=== PATIENT | male | born 1955 | race Caucasian/White ===

== ENCOUNTER 2017-09-23 12:30 | Emergency (ER) | payer SELFPAY ==
[~2017-09-23] VITALS: Ht 177.8 cm; Wt 116.1 kg
[~2017-09-23 12:30] MED LIST: Z.0.NO CURRENT MEDS
[2017-09-23 12:44] VITALS: BP 150/69; PULSE 74; RESP 16; TEMP 98.3; O2SAT 98
[2017-09-23] MEDS ORDERED: TYLETAB34 PO (13:52)
[2017-09-23] MEDS ORDERED: AUGM875T3 PO (13:52)
--- NOTE | 2017-09-23 13:53 | PD ---
HPI Chief Complaint: Oral / Dental Pain or Problem Time Seen by Provider: 13:36 Travel History International Travel<30 days: No Contact w/Intl Traveler<30days: No Traveled to known affect area: No History of Present Illness HPI 62-year-old male here with left lower dental pain and jaw swelling 2 days. No fever chills. No difficulty swallowing. Symptom severity is moderate. No aggravating or alleviating factors. PFSH Past Medical History Arthritis: Yes Diminished Hearing: No Tetanus Vaccination: < 5 Years Influenza Vaccination: No Social History Alcohol Use: No (quit) Tobacco Use: No (quit) Substance Use: No Allergies-Medications (Allergen,Severity, Reaction): Coded Allergies: No Known Allergies (Verified Adverse Reaction, Unknown, 09/23/17) Reported Meds & Prescriptions Reported Meds & Active Scripts Active No Active Prescriptions or Reported Medications Review of Systems Except as stated in HPI: all other systems reviewed are Neg General / Constitutional: No: Fever Eyes: No: Visual changes HENT: Positive: Dental Difficulties, No: Headaches Cardiovascular: No: Chest Pain or Discomfort Respiratory: No: Shortness of Breath Gastrointestinal: No: Abdominal Pain Genitourinary: No: Dysuria Physical Exam Narrative GENERAL: Alert and well-appearing 62-year-old male SKIN: Warm and dry. HEAD: Normocephalic. Mild left lower jaw swelling EYES: No injection or drainage. MOUTH: Widespread dental decay. Notable gum erythema and mild swelling around tooth #19. No swelling to the floor the mouth. Uvula is midline. Airways patent. NECK: Supple, trachea midline. No lymphadenopathy. CARDIOVASCULAR: Regular rate and rhythm without murmurs, gallops, or rubs. RESPIRATORY: Breath sounds equal bilaterally. No accessory muscle use. Data Data Last Documented VS Vital Signs Date Time Temp Pulse Resp B/P (MAP) Pulse Ox O2 Delivery O2 Flow Rate FiO2 09/23/17 12:44 98.3 74 16 150/69 (96) 98 MDM Medical Decision Making Medical Screen Exam Complete: Yes Emergency Medical Condition: Yes Differential Diagnosis Dental abscess, dental caries, periodontal disease Narrative Course 62-year-old male here with left lower dental pain and swelling. He has a dental abscess. He will be treated with antibiotics. Diagnosis Primary Impression: Dental abscess Referrals: Dentist Additional Instructions: Antibiotics as directed. Pain medication as directed. Follow-up with her dentist Scripts Acetaminophen-Codeine (Tylenol-Codeine #3) 300-30 mg Tab 1 TAB PO Q6H Y for PAIN, #12 TAB 0 Refills Prov: Margaret Green 09/23/17 Amoxicillin-Clavulanate (Augmentin) 875-125 Mg Tab 1 TAB PO BID for Infection, #20 TAB 0 Refills Prov: Margaret Green 09/23/17 Disposition: 01 DISCHARGE HOME Condition: Stable Margaret Green September 23, 2017 13:53
== END 2017-09-23 13:54 | disposition home or self-care (01) ==
LOC: PHEFT 12:30
DX: K04.7 Periapical abscess without sinus (principal); Z87.39 Personal history of other diseases of the musculoskeletal system and connective tissue
CPT/HCPCS: 99283